=== PATIENT | male | born 1945 | race Caucasian/White ===

== ENCOUNTER 2022-12-19 12:26 | Emergency (ER) | payer MEDICARE ==
[~2022-12-19] VITALS: Ht 165.1 cm; Wt 59.0 kg
[2022-12-19] MEDS ORDERED: BAYER CHEWABLE81 MG PO (15:25)
[2022-12-19] MEDS ORDERED: LASIX40 MG PO (15:25)
[2022-12-19] MEDS ORDERED: COZAAR100 MG PO (15:25)
[2022-12-19] MEDS ORDERED: AMOX TR-K CLV1 EAC1 PO (18:15)
--- OUTSIDE RECORDS SUMMARY | 2022-12-19 18:54 | XMS ---
PreManage Notification: MATTEO ACOSTA Security Cyber Security Architect Events No recent Security Events currently on file CRITERIA MET - [facility] - 2 Visits in 30 Days CARE PROVIDERS [facility] ROMOCritical access hospital Current PHONE: [phone] Melani has no Care Guidelines for this patient. E.DRussell VISIT COUNT (12 MO.) 1 Janeth Amos M.C. Michele Lincoln [address] [place] [address] TOTAL 6 NOTE: Visits indicate total known visits. ED/UCC VISIT TRACKING (12 MO.) 12/19/2022 12:28 [facility] Early [place] TYPE: Emergency COMPLAINT: - LOWER ABD PAIN 11/22/2022 18:28 [facility] Brett [place] TYPE: Emergency DIAGNOSES: - Calculus of kidney - Abdominal Pain - Acute kidney failure, unspecified - Unspecified renal colic 04/23/2022 18:49 [facility]hele [facility] [place] TYPE: Emergency DIAGNOSES: - cough - Chronic cough - Hypokalemia 03/02/2022 15:33 Michele Ronmonie GoyoRussell [facility] [place] TYPE: Emergency DIAGNOSES: - Shortness of breath/ swollen feet - Acute on chronic systolic (congestive) heart failure - Shortness of Breath - Wheezing - Leg Swelling 02/12/2022 05:08 [facility]hele [facility] [place] TYPE: Emergency DIAGNOSES: - Abdominal pain - Diverticulitis of intestine, part unspecified, without perforation or abscess without bleeding - Calculus of kidney 02/05/2022 14:45 [facility] [place] TYPE: Emergency DIAGNOSES: - Heart failure, unspecified - SOB;Cough - Shortness of Breath - Influenza due to other identified influenza virus with other respiratory manifestations INPATIENT VISIT TRACKING (12 MO.) No inpatient visits to display in this time frame [email or web address]
== END 2022-12-19 18:38 | disposition home or self-care (01) ==
LOC: ED 12:26
DX: K57.20 Diverticulitis of large intestine with perforation and abscess without bleeding (principal); I50.9 Heart failure, unspecified; Z79.899 Other long term (current) drug therapy; Z79.82 Long term (current) use of aspirin
CPT/HCPCS: 36415; 74177; 80053; 81001; 83690; 85025; 99284-25; Q9967